=== PATIENT | female | born 1965 | race Caucasian/White ===

== ENCOUNTER → 2016-09-24 | Outpatient (CLI) | payer BC ==
--- NOTE | 2016-09-24 10:21 | MA ---
Diagnostic Digital Mammogram With iCAD Analysis Clinical Indications: Evaluate palpable area in the upper right breast. The patient's last screening mammographic study was March 2015. Technique: Standard cephalocaudal projections are obtained. Digital breast tomosynthesis was performe d in the MLO projection with reconstruction at 1.0 mm slice thickness and composite MLO views reconst ructed. A marker is placed on the palpable area in the upper right breast. Additionally, an exaggerat ed axillary craniocaudal view and a true lateral view of the right breast are performed. This examina tion is processed by the iCAD computer aided detection system. Comparison: March 2015, November 2013, December 2011. Breast density: Type C: Heterogeneously dense. Findings: CAD was reviewed. No masses, suspicious calcifications or secondary signs of malignancy are seen. No mammographic correlate is found to the palpable area in the upper right breast. There has b een no significant change in the appearance of either breast. Impression: Palpable area requires further evaluation, BI-RADS 0. Recommendation: Targeted right breast ultrasound which will be subsequently performed today. A verbal report was given to the patient. [facility] will send a result letter to the patient. Negative mammography should not preclude additional workup of a clinically suspicious finding. The patient's information is entered into a reminder system with a target due date for her next mammo gram.
--- NOTE | 2016-09-24 11:08 | US ---
Right Breast Ultrasound History: Evaluate palpable lump. Technique: Longitudinal and transverse images were obtained utilizing a 15 MHz transducer. Color Dop pler evaluation is employed for assessment of vascularity. The examination is interpreted in conjunction with diagnostic mammography performed earlier today. Findings: On my physical examination I do not detect a discrete palpable abnormality. Sonographic int errogation of the upper outer posterior right breast is performed demonstrating normal glandular [place]. No suspicious solid mass is identified. Incidentally in the region there is a benign-appearing lymph node which is stable in appearance on mammography compared to older studies. Impression: Benign findings, when considering mammographic and sonographic assessment, BI-RADS 2.. Recommendation: Resume routine mammographic screening in one year as long as physical examination is negative.. Findings and follow-up recommendations were reviewed with the patient in detail. [facility] will send a result letter to the patient.
== END ==
LOC: FIMAGING 09:25
PROVIDERS: ATTEND Family Medicine
DX: N63 Unspecified lump in breast (principal)
CPT/HCPCS: G0204; G0279

== ENCOUNTER → 2017-10-11 | Outpatient (CLI) | payer BC | LOC: FIMAGING 12:07 | PROVIDERS: ATTEND Obstetrics & Gynecology | DX: Z12.31 Encounter for screening mammogram for malignant neoplasm of breast (principal) ==

== ENCOUNTER → 2018-02-04 | Outpatient (CLI) | payer BC | LOC: FIMAGING 15:12 | PROVIDERS: ATTEND Family Medicine | DX: M79.605 Pain in left leg (principal) ==